=== PATIENT | male | born 1980 | race African-American/Black ===

== ENCOUNTER 2018-10-25 17:33 | Emergency (ER) | payer SELFPAY ==
[2018-10-25] VITALS (7 sets, daily range): BP systolic 141–150; BP diastolic 86–106; PULSE 83–104; RESP 14–22; TEMP 37.2; O2SAT 92–95; BMI 23.0
[2018-10-25] MEDS: Ipratropium/Albuterol Sulfate 3 ML AMPUL.NEB INHALATION (18:24)
[2018-10-25] MEDS: predniSONE 20 MG Tablet 60 MG PO (19:08)
--- NOTE | 2018-10-25 19:16 | ED.DCSUM_ITS ---
- ER Visit Summary Date of Service: 10/25/18 Chief Complaint: Asthma History of Present Illness: The patient is a 38 M who presents with shortness of breath that has gotten worse today. Patient states is gradually gotten worse over the past 3 days. Patient states this feels similar to prior asthma exacerb ations. Patient admits to a cough with occasional clear sputum. Patient admits to some subjective chills. Patient admits to some dull chest pain. Physical Examination: Vital signs are stable. Patient is afebrile. Patient is in no acute distress. Oral mucosa is pink and moist. Neck is supple. Trachea is midline. There is no JVD noted. Heart was regular rate and rhythm. Lungs showed diffuse wheezing. There is good respiratory effort noted. There are no retractions noted. Abdomen is soft and nontender. Cranial nerves II through XII are intact. There are no focal motor or sensory deficits noted. Emergency Department Course and Treatment: Patient was given a DuoNeb aerosol here. Patient was given a dose of prednisone. Patient still had some wheezing on reevaluation. Patient was given a repeat albuterol aerosol. Patient was given prescription for albuterol nebulizer solution and prednisone. Patient was instructed to follow-up with his primary care physician in 5-7 days. Patient understood and was agreeable with the plan. All questions were answered. Disposition: Discharge home Impression: Asthma exacerbation This note was generated with [employer] dictation software. It may contain incorrect words, spelling, and punctuation that were not noted in review of the chart prior to signing ED Disposition - Plan for ED Patient: Disposition: Home or Assisted Living Diagnosis: Asthma exacerbation Instructions: ED Reactive Airway Disease Prescriptions: Albuterol Aerosols [Ventolin Aerosols] 2.5 mg INHALATION Q4H PRN #25 vial predniSONE tablet 60 mg PO DAILY #15 tab Referrals: Bharat Hinojosa,Joleen Leroy [NON-STAFF] - 5-7 Days
[2018-10-25] MEDS: Albuterol 2.5 MG/3 ML VIAL.NEB. INHALATION (19:50)
--- NOTE | 2018-10-25 20:07 | ED.RN ---
THIS NURSE REVIEWED D/C INSTRUCTIONS WITH PT. PT VERBALIZED UNDERSTANDING OF INSTRUCTIONS. IV D/C. IV CATHETER INTACT. PT TOLERATED WELL. PT DENIES FURTHER NEEDS OR QUESTIONS AT THIS TIME. PT AMBULATES FROM ROOM ON OWN WITHOUT ASSISTANCE FROM STAFF
== END 2018-10-25 20:07 | disposition home or self-care (01) ==
PROVIDERS: Emergency Provider Emergency Medicine
DX: J45.901 Unspecified asthma with (acute) exacerbation (principal); Z72.0 Tobacco use; Z79.51 Long term (current) use of inhaled steroids
CPT/HCPCS: 94640; 99284

== ENCOUNTER 2018-11-05 20:06 | Observation (INO) | payer SELFPAY ==
[2018-10-25 17:33] VITALS: BMI 23.0
[2018-11-05] VITALS (8 sets, daily range): BP systolic 149–188; BP diastolic 93–99; PULSE 98–124; RESP 20–28; TEMP 35.8–36.6; O2SAT 91–96; BMI 24.3
[2018-11-05] MEDS: predniSONE 20 MG Tablet 80 MG PO (20:51)
[2018-11-05] MEDS: Albuterol 2.5 MG/3 ML VIAL.NEB. INHALATION ×5 (20:56→22:27)
--- NOTE | 2018-11-05 21:54 | EKG12_ITS ---
Test Reason : SOB Blood Pressure : / mmHG Vent. Rate : 100 BPM Atrial Rate : 100 BPM P-R Int : 130 ms QRS Dur : 076 ms QT Int : 344 ms P-R-T Axes : 073 070 042 degrees QTc Int : 443 ms Normal sinus rhythm Normal ECG Confirmed by KIERRA POOLE, FABIOLA ([id number]), deputy editor in chief DEVENDRA BIGGS ([id number]) on 11/07/2018 12:52:30 PM Referred By: DANIELA Confirmed By:FABIOLA LOZADA MD
[2018-11-05] MEDS: Ipratropium/Albuterol Sulfate 3 ML AMPUL.NEB INHALATION (22:03)
--- NOTE | 2018-11-05 22:15 | RAD_ITS ---
STUDY: X-RAY CHEST REASON FOR EXAM: Male, 38 years old. Wheezing, dyspnea. History of asthma. TECHNIQUE: PA and lateral chest. COMPARISON: August 25, 2016. FINDINGS: The lungs are clear and expanded. There is no demonstrated pleural abnormality. Normal size heart. Normal mediastinum and apolinar. Normal visualized pulmonary arteries. Normal visualized aortic arch and descending thoracic aorta. Normal visualized thoracic spine. Normal visualized ribs, clavicles, and shoulders. There is no demonstrated abnormality of the visualized soft tissue structures of the upper abdomen. RAD/Chest PA and Lateral IMPRESSION: Normal x-ray examination of the chest. Electronically Signed: Rajesh Flores MD at 0:21 EDT , Service support ,
--- NOTE | 2018-11-05 22:25 | ED.RN ---
After first set of breathing treatments pt uses call light to let this RN know he is feeling worse. Pt is labored breathing again, diaphoretic, tachypneic stating i cant breath, i need air Pt pulse ox noted to be 86% at this time. Placed on oxygen 2L NC. Dr Araya notified and states he will enter more orders. After reassessing patient he states he is feeling a little better after the oxygen, now 94% on 2L.
[2018-11-05 22:36] LABS: Absolute Lymphocyte Count 2.63 X10^3/ul (0.83-4.51); Absolute Neutrophil Count 9.6 X10^3/uL (2.0-7.7); Basophil# 0.03 X10^3/uL; Basophil% 0.2 % (0-1); Eosinophil# 0.36 X10^3/uL; Eosinophils% 2.6 % (0-5); Hematocrit 43.9 % (40-54); Hemoglobin 14.9 g/dl (13.0-16.5); Lymphocyte # 2.63 X10^3/ul (4.0); Lymphocyte % 19.3 % (19-41); Mean Corp Hgb Conc 33.9 g/gl (32-36); Mean Corpuscular Hgb 28.8 pg (27.0-32.0); Mean Corpuscular Volume 84.7 fL (80-94); Mean Platelet Vol. 8.7 fl (6.2-12.0); Monocyte# 0.98 X10^3/uL; Monocyte% 7.2 % (0-10); Neutrophil # 9.62 X10^3/uL (2.7-7.7); Neutrophil % 70.5 % (47-70); Platelet Count 266 K/mm3 (150-450); RBC Distribution Width CV 14.4 % (11.6-14.6); RBC Distribution Width SD 44.3 fl (35.1-43.9); Red Blood Count 5.18 M/mm3 (4.6-6.2); White Blood Count 13.7 K/mm3 (4.4-11.0)
[2018-11-05 22:41] LABS: POSITIVE COUNT NO; POSITIVE DIFFERENTIAL NO; POSITIVE MORPHOLOGY NO
[2018-11-05 22:45] LABS: Anion Gap 6 (5-15); BUN 12 mg/dL (7-18); BUN/Creat Ratio 12.3 RATIO (10-20); Calcium,Total 8.4 mg/dL (8.5-10.1); Chloride 110 mmol/L (98-107); Creatinine, Serum 0.98 mg/dL (0.70-1.30); EST Glomerular Filtration Rate 91 mL/min (>60); Est Glom Filt Rate - Afr Amer 110 mL/min (>60); Estimated Creatinine Clearance 104.49 ml/min; Glucose 109 mg/dL (74-106); Potassium 3.8 mmol/L (3.5-5.1); Sodium Level 140 mmol/L (136-145)
--- NOTE | 2018-11-05 23:23 | ED.VISSUMM ---
- ER Visit Summary Date of Service: 11/05/18 Chief Complaint: Asthma flare History of Present Illness: The patient is a 38 M history of asthma shortness of breath and wheezing. Denies any chest pain. States has had a productive cough of clear phlegm. No hemoptysis. No history of DVT or PE no significant risk factors. No leg pain or swelling. He has had asthma flares like this before. Physical Examination: Middle-aged male. Vital signs stable. He is tachycardic at 124. Pulse ox 91% on room air. Borderline hypoxia. H EENT exam unremarkable. Neck nontender no JVD. No lymphadenopathy. Heart tachycardic rate of 120 no murmur. Lungs expiratory wheezing throughout. Prolonged extra Tory phase. No rales no rhonchi. Equal symmetrical. Abdomen soft and nontender. Extremities moves all 4. Calves nontender no edema. Neurologically is awake alert with no focal deficits. Test Results: Chest x-ray two-view shows no acute abnormality. Normal cardiac silhouette. No infiltrate. EKG sinus rhythm rate of 100 acute signs of KS or ischemia. CBC shows white count 13. H&H of 14 and 43. Chemistries unremarkable. Normal creatinine and gap. Emergency Department Course and Treatment: Patient initially treated with oral prednisone albuterol and DuoNeb aerosols. He was not improving as quickly as I had hoped written screening labs and a chest x-ray which are basically unremarkable. He received additional aerosols. And is now much improved at 2320. Treatment Plan: I considered the patient being discharged home. However his pulse was only 89 in bed without oxygen. We walked him and his sats initially got better ambulating 92-94 on room air however his heart rate was between 120 and 130. His breathing became labored. I discussed with him and he is comfortable being admitted. We will speak to the hospitalist about admission. Disposition: admit Impression: Acute exacerbation of asthma This note was generated with [employer] dictation software. It may contain incorrect words, spelling, and punctuation that were not noted in review of the chart prior to signing ED Disposition - Plan for ED Patient: Disposition: Home or Assisted Living Instructions: ED Bronchitis Asthmatic Prescriptions: Albuterol Aerosols [Ventolin Aerosols] 2.5 mg INHALATION Q4H PRN #25 vial Prednisone [Deltasone] 40 mg PO DAILY 10 Days tab Referrals: Joleen Leroy [NON-STAFF] - As soon as possible Additional Instructions: Prednisone daily for 10 days. Inhaler as needed. Nebulizer as needed.
--- NOTE | 2018-11-05 23:28 | ED.DEP ---
ED Disposition - Plan for ED Patient: Disposition: Home or Assisted Living Instructions: ED Bronchitis Asthmatic Prescriptions: Albuterol Aerosols [Ventolin Aerosols] 2.5 mg INHALATION Q4H PRN #25 vial Prednisone [Deltasone] 40 mg PO DAILY 10 Days tab Referrals: Joleen Leroy [NON-STAFF] - As soon as possible Additional Instructions: Prednisone daily for 10 days. Inhaler as needed. Nebulizer as needed.
--- NOTE | 2018-11-05 23:49 | HP.PCM_ITS ---
Problem List (1) Acute asthma exacerbation Status: Suspected History of Present Illness Date of Admission: 11/05/18 Chief Complaint: Shortness of breath The patient is a 38 year old M with a significant history of asthma and tobacco abuse who was discharged at our emergency department on 10/25/2018 with albuterol aerosol and prednisone tablets returning with a few day history of recurrent shortness of breath. Patient reported that following his previous emergency department visit as stated above he noticed some improvement only to have recurrence of his shortness of breath. He reported that recently he woke up with shortness of breath. Also his significant other noticed that he was in distress with adventitious audible breath sounds. Patient reports wheezing. Associated with her Symptoms is productive cough with clear sputum. He reports using [id number] cough syrup. Emergency department doctor reported that on room air patient had oxygenation of 89%. With ambulation his oxygenation rather improved but his heart rate increased to 130. At the emergency department he received a couple rounds of breathing treatment and prednisone 80 mg p.o. The plan was to discharge him home but because he continued to have shortness of breath. The emergency department doctor recommended that he stays at the hospital and be watched. Past Medical History Past Medical History (Chronic Problems): Chronic Problems Former smoker (Chronic) Medical History: Medical History (Last Updated 11/06/18 @ 03:14 by Manuel Zurita MD) Asthma J45.909 Allergies iodine Allergy (Verified 10/25/18 17:35) Swelling Home Medications: Ambulatory Orders Medication Instructions Recorded Acetaminophen [Tylenol Tablet] 650 mg PO Q6H PRN PRN #0 tablet 08/26/16 Budesonide/Formoterol Fumarate 10.2 gm IH BID #1 hfa.aer.ad 08/26/16 [Symbicort 160-4.5 Mcg Inhaler] Albuterol Aerosols [Ventolin 2.5 mg INHALATION Q4H PRN #25 vial 10/25/18 Aerosols] Surgical History: no surgical history Psychiatric History: No pertinent psych hx Smoking Status: Former smoker - Quit few days ago. Alcohol: Occasional - *Family History Maternal History Items: Asthma, Hypertension Paternal History Items: Diabetes Review of Systems Constitutional: Denies: Chills, Fever, Weight Change HEENT: Denies: Head Aches, Sinus Congestion, Sinus Drainage Cardiovascular: Denies: Chest Pain, Palpitations Respiratory: Reports: Cough, Shortness of breath at rest, Sputum production Gastrointestinal: Denies: Abdominal Pain, Nausea, Vomiting Genitourinary: Denies: Dysuria Musculoskeletal: Denies: Joint Pain, Joint Tenderness Skin: Denies: Rash, Wounds Neurological: Denies: Numbness, Tingling, Focal weakness Psychiatric: Denies: Anxiety, Depression, Homicidal Ideations, Suicidal Ideations Hematologic/ Lymphatic: Denies: Easy Bruising, Easy Bleeding VTE Information - Inpt Only VTE Present on Admission: No VTE Mechan Device Prophylaxis: None VTE Pharm Prophylaxis ordered?: No Reason prophylaxis not ordered:: Treatment Not Indicated - Low risk - Physical Exam General: Alert, Oriented x3, Cooperative HEENT: Atraumatic, PERRLA, EOMI, Normocephalic Neck: Supple, No JVD, Negative Carotid Bruits Lungs: Rhonchi, Tachypneic, Wheezes, - - Prolonged expiratory phase Cardiovascular: Normal S1, Normal S2, No murmurs, Tachycardic Abdomen: Bowel Sounds Present, Soft, Non Tender Extremities: No edema, Capillary Refill Less than 3 Seconds Skin: No rashes, No breakdown Musculoskeletal: No Tenderness to Palpation of Joints or Extremities Neurological: Cranial nerves II-XII grossly intact Psych/Mental Status: Normal Affect, Appropriate Vital Signs Temp Pulse Resp BP Pulse Ox 98 F 102 H 22 H 149/99 H 95 11/05/18 22:06 11/05/18 22:27 11/05/18 22:27 11/05/18 22:06 11/05/18 22:06 Oxygen Flow Rate (L/min) 2 Oxygen Delivery Method Nasal Cannula Weight: 77.111 kg Body Mass Index (BMI) 24.3 Laboratory Tests Past 24 Hrs 11/05/18 11/05/18 22:25 22:25 WBC 13.7 H RBC 5.18 Hgb 14.9 Hct 43.9 MCV 84.7 MCH 28.8 MCHC 33.9 RDW 14.4 RDW Differential 44.3 H Plt Count 266 MPV 8.7 Immature Gran % (Auto) 0.200 Neut % (Auto) 70.5 H Lymph % (Auto) 19.3 [place] % (Auto) 7.2 Eos % (Auto) 2.6 Baso % (Auto) 0.2 Absolute Neuts (auto) 9.6 H Absolute Lymphs (auto) 2.63 Total Counted Not Reportable Sodium 140 Potassium 3.8 Chloride 110 H Carbon Dioxide 24.0 Anion Gap 6 BUN 12 Creatinine 0.98 Estim Creat Clear Calc 104.49 Est GFR (MDRD) Af Amer 110 Est GFR (MDRD) Non-Af 91 BUN/Creatinine Ratio 12.3 Glucose 109 H Calcium 8.4 L Assessment/Plan All Active Problems (Last Updated 11/06/18 @ 03:14 by Manuel Zurita MD) Acute respiratory failure with hypoxemia (Acute) he patient is a 38 year old M with a significant history of asthma and tobacco abuse who was discharged at our emergency department on 10/25/2018 with albuterol aerosol and prednisone tablets returning with a few day history of recurrent shortness of breath consistent with acute exacerbation of asthma. Acute exacerbation of asthma Received multiple breathing treatment and prednisone 80 mg was ordered at the emergency department. Discussed with emergency department doctor to give magnesium sulfate which patient received. Prednisone 40 mg x1 in a.m. Consider further prednisone therapy. Scheduled DuoNeb. Albuterol PRN ordered. Oxygen as needed. Mucinex ordered Rapid influenza screen ordered. Tobacco abuse. Reportedly patient quit few days ago. Counseled. DVT prophylaxis Low risk Encouraged to ambulate. Code Visit OBSV E&M: 77978 Initial observation care L3
[2018-11-06] VITALS (15 sets, daily range): BP systolic 112–132; BP diastolic 72–90; PULSE 76–104; RESP 16–20; TEMP 35.7–36.9; O2SAT 91–98; BMI 23.6
--- NOTE | 2018-11-06 00:45 | ED.RN ---
CALLED PHARMACY FOR MAGNESIUM.
[2018-11-06] MEDS: Ipratropium/Albuterol Sulfate 3 ML AMPUL.NEB INHALATION ×6 (02:03→23:23)
[2018-11-06] MEDS: 0.9% NaCl Peripheral Flush Adult/Peds IV ×3 (06:09→21:21)
[2018-11-06] MEDS: predniSONE 20 MG Tablet 40 MG PO (06:09)
[2018-11-06] MEDS: Budesonide Respules 0.5 MG/2 ML AMPUL.NEB. INHALATION (07:22)
[2018-11-06] MEDS: guaiFENesin 1,200 MG Tablet 1200 MG PO ×2 (11:13→21:21)
--- NOTE | 2018-11-06 11:18 | PN_ITS ---
Subjective: Patient notes notable improvement since day prior but still having dyspnea with exertion and some expiratory wheezing. He states he does have ongoing coughing although not markedly productive. Patient notes that he has had a severe exacerbation approximately once annually over the past 2 years and was recently evaluated in the emergency room the Sunday before secondary to ongoing symptoms but continued to progressively worsening. Patient denies fevers, chills, nausea, emesis, abdominal pain, chest pain. Objective: Physical Examination: General: awake, alert, oriented x 3 and cooperative, seated upright bedside, eating, no acute distress, notes market improvement since day prior. Skin: normal color, turgor, no icterus, cyanosis. HEENT: AT/NC, EOMI, PERRLA, MMM. Lungs: Severely diffusely diminished, greater bilateral bases, soft distant end expiratory wheeze, notable dyspnea with any exertional effort still, no rales or rhonchi. Heart: Regular rate and rhythm; no gallop, rub audible. Abdomen: soft, NTTP, ND, normal BS. Extremities: no cyanosis, clubbing, or edema. Neurological: patient awake, alert, oriented x 3; cognitive function intact; pupils equally reactive to light and accomodation; cranial nerves II-XII grossly normal, moving all 4 extremities, no focal deficits, strength moderately globally decreased secondary to acute presentation. Psychiatric: affect appears normal, no acute evidence of depressive or anxiety feelings. Vitals/I&O's: Vital Signs Temp Pulse Resp BP Pulse Ox 98.1 F 104 H 18 123/77 H 96 11/06/18 08:56 11/06/18 08:56 11/06/18 08:56 11/06/18 08:56 11/06/18 08:56 Oxygen Flow Rate (L/min) 2 Oxygen Delivery Method Room Air Weight: 164 lb 7.437 oz Body Mass Index (BMI) 23.6 Microbiology Past 72 Hours 11/06/18 02:10 Interface Orders Influenza Types A,B Direct FA (RUI) - Final Laboratory Results 11/05/18 22:25: WBC 13.7 H, RBC 5.18, Hgb 14.9, Hct 43.9, MCV 84.7, MCH 28.8, MCHC 33.9, RDW 14.4, RDW Differential 44.3 H, Plt Count 266, MPV 8.7, Immature Gran % (Auto) 0.200, Neut % (Auto) 70.5 H, Lymph % (Auto) 19.3, [place] % (Auto) 7.2, Eos % (Auto) 2.6, Baso % (Auto) 0.2, Absolute Neuts (auto) 9.6 H, Absolute Lymphs (auto) 2.63, Total Counted Not Reportable 11/05/18 22:25: Sodium 140, Potassium 3.8, Chloride 110 H, Carbon Dioxide 24.0, Anion Gap 6, BUN 12, Creatinine 0.98, Estim Creat Clear Calc 104.49, Est GFR (MDRD) Af Amer 110, Est GFR (MDRD) Non-Af 91, BUN/Creatinine Ratio 12.3, Glucose 109 H, Calcium 8.4 L Current Medications Acetaminophen (Tylenol) 650 mg PO Q6H PRN PRN PRN Reason: Mild Pain (scale 0-3)/T>100.7 Al Hydroxide/Mg Hydroxide (Mylanta Ii) 30 ml PO Q6H PRN PRN PRN Reason: Gastric burning Albuterol Sulfate (Ventolin Aerosols) 2.5 mg INHALATION Q2H PRN PRN PRN Reason: SHORTNESS OF BREATH Albuterol/Ipratropium (Duoneb) 3 ml INHALATION Q4H.RT [facility] Last Admin: 11/06/18 11:05 Dose: 3 ml Budesonide (Pulmicort Aerosol) 0.5 mg INHALATION Q12H.RT [facility] Last Admin: 11/06/18 07:22 Dose: 0.5 mg Guaifenesin (Mucinex) 1,200 mg PO BID [facility] Last Admin: 11/06/18 11:13 Dose: 1,200 mg Magnesium Hydroxide (Milk Of Magnesia) 30 ml PO DAILY PRN PRN PRN Reason: Constipation Ondansetron HCl (Zofran) 4 mg IV Q8H PRN PRN PRN Reason: NAUSEA Sodium Chloride () 5 - 15 ml IV UD PRN PRN Reason: SALINE FLUSH Last Admin: 11/06/18 06:09 Dose: 10 ml Medical Necessity - Tobacco Use Smoking Status: Former smoker - Quit few days ago. Assessment/Plan All Active Problems (Last Updated 11/06/18 @ 03:14 by Mnauel Zurita MD) Acute respiratory failure with hypoxemia (Acute) The patient is a 38 y/o M w/ PMHx: Asthma, Former Tobacco use who presents to the [facility] ED on 11/05/18 with history of several day history of progressive [place], wheezing, cough productive of clear sputum only without any fevers or chills times 1-2 weeks with ED evaluation x2 with intermittent improvement however worsened again prompting return. (1) Acute on chronic Asthma exacerbation with Acute Hypoxic Respiratory Failure: Initial ED presentation with hypoxia, increased work of breathing with accessory muscle usage and tachycardia. CXR w/ chronic changes. CBC on admission w/ no market WBC elevation or left shift. Admitted to CO, maintain on oxygen with wean as tolerated to room air, continue ATC duonebs, PRN albuterol, IV methylprednisolone will be initiated and continued given ongoing expiratory wheezing and diffusely diminished status, HOB, IS parameters, negative rapid influenza however given presentation will obtain respiratory viral panel. If p atient continues to clinically improve would expect possible discharge to home in a.m. on a prolonged taper regimen given recent steroid burst regimens with unsuccessful resolution. Upon discharge will refer to pulmonary medicine. (2) Former tobacco use: Encouraged continued tobacco cessation. (3) DVT prophylaxis: Low risk, as improving encourage ambulation. Code Visit Inpatient E&M: 66965 Subs Hosp L2
--- NOTE | 2018-11-06 12:20 | CASEMGMT ---
Social Work Note Pt is listed as self-pay. Per PFS notes, pt hasn't worked in five months. Pt has been staying with his family and significant other who have been supporting home. 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 Pt completed Medicaid application and HCAP application. PFS faxed completed Medicaid application to [facility]. SW met with pt in regards to self-pay status. SW introduced self and role at [facility]. Pt is alert and orientated x4. Pt confirms that he lives with family and is not currently employed. Pt states that he has good family and friends and he feels supported. Substance Abuse Hx: Pt states that he drinks a little bit and that he used to smoke weed. Pt denied any additional substance abuse or use. Mental Health Hx: Pt states he has anxiety, but nothing more than anyone else. Pt denied currently taking medications. Pt states that he used to be in counseling but it was through the courts. Pt denied wanting counseling resources at this time. LAILA provided pt with additional financial resources including Joleen Leroy, [employer], [place] [address], [facility] financial assistance, and prescription assistance resources. Pt denied any questions or concerns. Kelsey Brown GAMBLING DEALER, HOME HEALTH NURSE LICENSED PRACTICAL
[2018-11-06] MEDS: Albuterol 2.5 MG/3 ML VIAL.NEB. INHALATION (21:09)
[2018-11-07 02:41] VITALS: BP 128/76; PULSE 90; RESP 18; TEMP 36.7; O2SAT 97
[2018-11-07 02:55] VITALS: PULSE 77; RESP 20
[2018-11-07] MEDS: Ipratropium/Albuterol Sulfate 3 ML AMPUL.NEB INHALATION (02:55)
[2018-11-07] MEDS: 0.9% NaCl Peripheral Flush Adult/Peds IV (06:07)
--- NOTE | 2018-11-07 07:47 | DCINST_ITS ---
- Discharge Diagnoses Current Active Problems: (1) Acute on chronic Asthma exacerbation with Acute Hypoxic Respiratory Failure (2) Former tobacco use You will use the following diet at home:: No restrictions Your food should be the consistency of: Regular Your liquids should be the consistency of: Regular/Thin Discharge Activity: - - Avoid aggressive activity until completed steroid taper, re-evaluation per your physician. Please avoid any known asthma triggers. May resume sexual activity in: 10-14 days Call your doctor if you observe: Fever of 101 or Higher, Inability to urinate, Inability to have a bowel movement, Shortness of breath, Dizziness, Fainting spells, Chest pain, Uncontrolled pain Instructions: ED Bronchitis Asthmatic, Using a Nebulizer (Adult) Allergies/Adverse Reactions: Allergies iodine Allergy (Verified 10/25/18 17:35) Swelling Medications to take at Discharge Acetaminophen [Tylenol Tablet] 650 mg PO Q6H PRN PRN #0 tablet 08/26/16 Budesonide/Formoterol Fumarate [Symbicort 160-4.5 Mcg Inhaler] 10.2 gm IH BID #1 hfa.aer.ad 08/26/16 Albuterol Aerosols [Ventolin Aerosols] 2.5 mg INHALATION Q4H PRN #1 box 11/07/18 Albuterol IH (ProAir) [Proair Hfa] 1 - 2 puff INHALATION Q4H PRN PRN #1 inhaler 11/07/18 Guaifenesin [Mucinex] 1,200 mg PO BID #20 tablet 11/07/18 Prednisone 10 mg PO UD #30 tablet 11/07/18 The following prescriptions were given: Albuterol Aerosols [Ventolin Aerosols] 2.5 mg INHALATION Q4H PRN #1 box Albuterol IH (ProAir) [Proair Hfa] 1 - 2 puff INHALATION Q4H PRN PRN #1 inhaler PRN Reason: dyspnea, wheezing Prednisone 10 mg PO UD #30 tablet Guaifenesin [Mucinex] 1,200 mg PO BID #20 tablet Primary Care Physician: Joleen Leroy [NON-STAFF] - As soon as possible Please follow up with your Primary Care Physician in: Follow-up within 3-5 days to review admission. Test Results: Test results from this visit will be discussed in further detail at your follow- up appointment, if applicable. Please Follow Up With: Brown,Jozef, DO When: Please follow-up within 1-2 weeks, may see Wilma RIVERO. Proposed Discharge Date: 11/07/18
--- NOTE | 2018-11-07 07:49 | DS.PCM_ITS ---
Discharge Date and Diagnosis Date of Admission: 11/05/18 Date of Discharge: 11/07/18 - Primary Discharge Diagnosis (1) Acute on chronic Asthma exacerbation with Acute Hypoxic Respiratory Failure (2) Former tobacco use - Secondary Discharge Diagnosis Chronic Problems Former smoker (Chronic) Hospital Course and Treatment Operations: None Procedures: None Summary of Care Provided: The patient is a 38 y/o M w/ PMHx: Asthma, Former Tobacco use who presented to the [facility] ED on 11/05/18 with history of several day history of progressive fatigue, wheezing, cough productive of clear sputum only without any fevers or chills times 1-2 weeks with ED evaluation x2 with intermittent improvement however worsened again prompting return. Initial ED presentation with hypoxia, increased work of breathing with accessory muscle usage and tachycardia. CXR w/ chronic changes. CBC on admission w/ no market WBC elevation or left shift. Admitted to DE, maintain on oxygen with wean as tolerated to room air, continue ATC duonebs, PRN albuterol, IV methylprednisolone will be initiated and continued given ongoing expiratory wheezing and diffusely diminished status, HOB, IS parameters, negative rapid influenza with followup negative respiratory viral panel. Patient clinically improved, transitioned upon discharge to prolonged steroid taper given recurrent with recent burst with requested PCP and Pulmonary medicine follow-up upon discharge w/ encouraged continued tobacco cessation. DAY OF DISCHARGE PROGRESS NOTE: Subjective: Patient without acute event overnight per self and nursing report. Patient had complete resolution of prior wheezing. He is up and moving without any issues. Patient denies fever, chills, nausea, emesis, abdominal pain, chest pain or worsened dyspnea. Patient agreeable to discharge to home. Patient will be discharged with follow-up with primary care physician within 3-5 days message left at the [facility] to assure good follow-up as well as referral to pulmonary medicine with planned follow-up within 1-2 weeks with pulmonary HUMANITIES DIVISION CHAIR. Objective: T 97.8, heart rate 130/74, respiratory rate 18, 96% on room air. Physical Examination: General: awake, alert, oriented x 3 and cooperative, seated upright in the bed, NAD. Skin: normal color, turgor, no icterus, cyanosis. HEENT: AT/NC, EOMI, PERRLA, MMM. Lungs: Improved, mildly diminished at bases, no current wheezing, better and improved effort, no rales or rhonchi. Heart: Regular rate and rhythm; no gallop, rub audible. Abdomen: soft, NTTP, ND, normal BS. Extremities: no cyanosis, clubbing, or edema. Neurological: patient awake, alert, oriented x 3; cognitive function appears intact upon questioning,; pupils equally reactive to light and accomodation; cranial nerves II-XII grossly normal, moving all 4 extremities, strength improved, appropriate. Psychiatric: affect appears normal, no acute evidence of depressive or anxiety feelings. Assessment and Plan: Please see hospital summary above. - Physical Exam Vital Signs Temp Pulse Resp BP Pulse Ox 98.0 F 77 20 H 128/76 H 97 11/07/18 02:41 11/07/18 02:55 11/07/18 02:55 11/07/18 02:41 11/07/18 02:41 Oxygen Flow Rate (L/min) 2 Oxygen Delivery Method Room Air Weight: 164 lb 7.437 oz Body Mass Index (BMI) 23.6 Intake and Output for Last 24 Hours 11/05/18 11/06/18 11/07/18 23:59 23:59 23:59 Intake Total 400 / 400 240 / 240 Balance 400 / 400 240 / 240 Microbiology Past 72 Hours 11/06/18 13:25 Respiratory Panel (PCR) - Final Mucosa - Nasopharyngeal 11/06/18 02:10 Influenza Types A,B Direct FA (RUI) - Final Interface Orders Discharge Activity: - - Avoid aggressive activity until completed steroid taper, re-evaluation per your physician. Please avoid any known asthma triggers. May resume sexual activity in: 10-14 days Call your doctor if you observe: Fever of 101 or Higher, Inability to urinate, Inability to have a bowel movement, Shortness of breath, Dizziness, Fainting spells, Chest pain, Uncontrolled pain Home Medications: Medications to take at Discharge Acetaminophen [Tylenol Tablet] 650 mg PO Q6H PRN PRN #0 tablet 08/26/16 Budesonide/Formoterol Fumarate [Symbicort 160-4.5 Mcg Inhaler] 10.2 gm IH BID #1 hfa.aer.[email or web address] 08/26/16 Albuterol Aerosols [Ventolin Aerosols] 2.5 mg INHALATION Q4H PRN #1 box 11/07/18 Albuterol IH (ProAir) [Proair Hfa] 1 - 2 puff INHALATION Q4H PRN PRN #1 inhaler 11/07/18 Guaifenesin [Mucinex] 1,200 mg PO BID #20 tablet 11/07/18 Prednisone 10 mg PO UD #30 tablet 11/07/18 Following Prescrptions Were Given to Patient: Albuterol Aerosols [Ventolin Aerosols] 2.5 mg INHALATION Q4H PRN #1 box Albuterol IH (ProAir) [Proair Hfa] 1 - 2 puff INHALATION Q4H PRN PRN #1 inhaler PRN Reason: dyspnea, wheezing Prednisone 10 mg PO UD #30 tablet Guaifenesin [Mucinex] 1,200 mg PO BID #20 tablet Primary Care Physician: Joleen Leroy [NON-STAFF] - As soon as possible Please follow up with your Primary Care Physician in: Follow-up within 3-5 days to review admission. Please Follow Up With: Jozef Maharaj DO When: Please follow-up within 1-2 weeks, may see Pulm HUMANITIES DIVISION CHAIR. Patient Instructions: Using a Nebulizer (Adult), ED Bronchitis Asthmatic Disposition: Home Minutes spent on discharge:: 35 Patient Condition:: Fair Medical Necessity - Tobacco Use Smoking Status: Former smoker - Quit few days ago. Meaningful Use Info Meaningful Use Diagnoses (Choose all that apply): None applicable Code Visit OBSV E&M: 12341 Observation care discharge
[2018-11-07 07:50] VITALS: O2SAT 96
[2018-11-07 08:45] VITALS: BP 130/74; PULSE 95; RESP 20; TEMP 36.6; O2SAT 92
--- NOTE | 2018-11-07 08:53 | NURSING ---
Addendum entered by Mayra Johns 11/07/18 12:29: [facility] returned call at this time. Notified that patient states he has been there before and was given address and telephone number to schedule own appointment. pt verbalized understanding prior to d/c this AM. Original Note: Addendum entered by Mayra Johns 11/07/18 09:59: call not returned prior to d/c-- pt reports he has been there in the past and can contact them regarding f/u visit. Dr. Nolasco's office (pulmonology) called and appointment scheduled. Notified by project scheduler that pt must see dr. nolasco as he was not consulted in hospital. (see d/c appts on worklist). Dr. Alberto also requested pt to have I.S. and pep to take on d/c. Same completed. Original Note: Attempted to call [facility] at this time to schedule f/u appt. Message left on answering machine- requesting return call to this RN's work cell phone.
[2018-11-07] MEDS: guaiFENesin 1,200 MG Tablet 1200 MG PO (09:42)
[2018-11-07 09:51] VITALS: RESP 20; O2SAT 92
== END 2018-11-07 10:17 | disposition home or self-care (01) ==
LOC: ED 23:32 → MS2 11-06 00:19
PROVIDERS: Admitting Provider Hospitalist; Emergency Provider Emergency Medicine; Visit Provider Family Medicine
DX: J45.901 Unspecified asthma with (acute) exacerbation (principal); J96.01 Acute respiratory failure with hypoxia; Z87.891 Personal history of nicotine dependence; Z79.51 Long term (current) use of inhaled steroids
CPT/HCPCS: 71046; 80048; 85025; 87633; 87804; 93005; 94640; 94667; 94668; 96361; 96374; 96376; 99218; 99282; J7050; A4216; G0378; J3475

== ENCOUNTER 2018-12-07 00:17 | Emergency (ER) | payer SELFPAY ==
[2018-11-06 01:20] VITALS: BMI 23.6
[2018-12-07 00:17] VITALS: BP 138/94; PULSE 110; RESP 24; TEMP 36.6; O2SAT 93; BMI 24.3
[2018-12-07] MEDS: Ipratropium/Albuterol Sulfate 3 ML AMPUL.NEB INHALATION (00:37)
[2018-12-07 00:39] VITALS: PULSE 101; RESP 12
[2018-12-07 00:58] VITALS: O2SAT 92
[2018-12-07] MEDS: predniSONE 20 MG Tablet 60 MG PO (00:58)
--- NOTE | 2018-12-07 01:05 | EKG12_ITS ---
Test Reason : SOB Blood Pressure : / mmHG Vent. Rate : 083 BPM Atrial Rate : 083 BPM P-R Int : 136 ms QRS Dur : 080 ms QT Int : 366 ms P-R-T Axes : 069 069 053 degrees QTc Int : 430 ms Normal sinus rhythm with sinus arrhythmia Normal ECG Confirmed by FARRAH POOLE, MINNA ([id number]), movie editor DEVENDRA BIGGS ([id number]) on 12/09/2018 11:52:44 AM Referred By: CARO Confirmed By:MINNA YAN MD
--- NOTE | 2018-12-07 01:05 | RAD_ITS ---
STUDY: X-RAY CHEST REASON FOR EXAM: Male, 38 years old. Shortness of breath with asthma exacerbation. TECHNIQUE: Single AP portable view of the chest. COMPARISON: November 05, 2018 FINDINGS: There is hyperinflation of the lungs consistent with chronic obstructive lung disease (COPD). There is no demonstrated pleural abnormality. Normal size heart. Normal mediastinum and apolinar. Normal visualized pulmonary arteries. Normal visualized aortic arch and descending thoracic aorta. Normal visualized thoracic spine. Normal visualized ribs, clavicles, and shoulders. There is no demonstrated abnormality of the visualized soft tissue structures of the upper abdomen. RAD/Chest 1 View (Portable) IMPRESSION: COPD without radiographic evidence of acute cardiopulmonary disease. Electronically Signed: Tia Mabry MD at 1:33 EDT , Service support ,
[2018-12-07 01:19] VITALS: PULSE 100; RESP 14
[2018-12-07] MEDS: Albuterol 2.5 MG/3 ML VIAL.NEB. INHALATION ×2 (01:19)
--- NOTE | 2018-12-07 02:05 | ED.VISSUMM ---
- ER Visit Summary Date of Service: 12/07/18 Chief Complaint: Shortness of breath History of Present Illness: The patient is a 38 M who goes to the [facility]. He has a history of asthma. Reports that since 3:00 this morning is been having to use his albuterol nebulizer every 3 hours. States he was last on steroids approximately 1 month ago. At that time he was hospitalized. He is never been intubated for his asthma. Patient reports that his shortness of breath is severe at worst and mild currently. He has a cough is productive of clear sputum without blood. Physical Examination: Vitals: Stable. Afebrile. General: Well-nourished and well-developed. Head: Normocephalic atraumatic. Neck: Supple, no lymphadenopathy. No JVD. Nontender. Cardiovascular: Regular rate and rhythm. No murmurs. Respiratory: No respiratory distress. Mild wheezing bilaterally with greatly decreased air movement. Abdominal: Soft, nontender, nondistended, normal bowel sounds. No guarding, rebound, or peritoneal signs. Back: Nontender. Extremities: Nontender, no edema. Skin: Normal color, no rash. Neurologic: Alert and oriented ?3. Cranial nerves II through XII are intact. Normal strength and sensation. Psych: Normal affect. Test Results: EKG is sinus at [address] changes. There is no old EKG for comparison. Chest x-ray shows no acute disease. No pneumothorax or infiltrate. Emergency Department Course and Treatment: Patient was treated butyryl Atrovent aerosols. He was given another albuterol aerosol as well as prednisone p.o. His lungs are now clear. He is breathing much more easily and would like to go home. Treatment Plan: The patient will be discharged with albuterol and Atrovent for his nebulizer. He is also given a prescription for the budesonide inhaler and prednisone. Instructed to follow-up with Dr. Maharaj as soon as possible. Return to the emergency department for any worsening symptoms. Disposition: To home in improved and stable condition. Impression: 1. Asthma exacerbation. This note was generated with [employer] dictation software. It may contain incorrect words, spelling, and punctuation that were not noted in review of the chart prior to signing ED Disposition - Plan for ED Patient: Disposition: Home or Assisted Living Instructions: ED Bronchitis Asthmatic Prescriptions: Albuterol Aerosols [Ventolin Aerosols] 2.5 mg INHALATION Q4H PRN #25 vial Prednisone [Deltasone] 60 mg PO DAILY #15 tablet Budesonide Inhaler 180 mcg [Pulmicort Inhaler 180 mcg] 1 puff INHALATION BID #1 inhaler Ipratropium [Atrovent] 0.5 mg INHALATION TID #1 box Referrals: Joleen Leroy [NON-STAFF] - 1-2 Days if not improving Jozef Maharaj DO [STAFF PHYSICIAN] - As soon as possible
[2018-12-07 03:23] VITALS: RESP 18; O2SAT 96
== END 2018-12-07 03:23 | disposition home or self-care (01) ==
PROVIDERS: Emergency Provider Emergency Medicine
DX: J45.901 Unspecified asthma with (acute) exacerbation (principal); Z87.891 Personal history of nicotine dependence
CPT/HCPCS: 71045; 93005; 94640; 99283

== ENCOUNTER 2019-07-12 13:06 | Emergency (ER) | payer OTHER, SELFPAY ==
[2019-07-12 13:08] VITALS: BP 158/98; PULSE 119; RESP 20; TEMP 36.8; O2SAT 85; BMI 24.3
--- NOTE | 2019-07-12 13:23 | EKG12_ITS ---
Test Reason : CP ASTHMA Blood Pressure : / mmHG Vent. Rate : 109 BPM Atrial Rate : 109 BPM P-R Int : 128 ms QRS Dur : 084 ms QT Int : 332 ms P-R-T Axes : 076 079 030 degrees QTc Int : 447 ms Sinus tachycardia Otherwise normal ECG Confirmed by KIERRA POOLE, FABIOLA ([id number]), international editorial producer ARIADNE PEREZ ([id number]) on 07/14/2019 2:45:12 PM Referred By: DANIELA Confirmed By:FABIOLA LOZADA MD
--- NOTE | 2019-07-12 13:23 | RAD_ITS ---
STUDY: X-RAY CHEST REASON FOR EXAM: Male, 39 years old. Dyspnea TECHNIQUE: PA and lateral views of the chest. COMPARISON: 12/07/2018 FINDINGS: The lungs are clear and expanded. There is no demonstrated pleural abnormality. Normal size heart. Normal mediastinum and apolinar. Normal visualized pulmonary arteries. Normal visualized aortic arch and descending thoracic aorta. Normal visualized thoracic spine. Normal visualized ribs, clavicles, and shoulders. There is no demonstrated abnormality of the visualized soft tissue structures of the upper abdomen. RAD/Chest PA and Lateral IMPRESSION: Normal x-ray examination of the chest. Electronically Signed: Martinez Verdin DO at 14:39 EST Tel , Service support ,
[2019-07-12] MEDS: Ipratropium/Albuterol Sulfate 3 ML AMPUL.NEB INHALATION (13:30)
[2019-07-12 13:31] VITALS: PULSE 118; RESP 24
[2019-07-12 13:41] VITALS: PULSE 108; RESP 22; TEMP 36.4; O2SAT 95
[2019-07-12] MEDS: MethylPREDNISolone 125 MG/2 ML Vial IV (13:42)
[2019-07-12 13:44] LABS: Absolute Lymphocyte Count 1.53 X10^3/uL (0.83-4.51); Absolute Neutrophil Count 4.5 X10^3/uL (2.0-7.7); Basophil# 0.03 X10^3/uL; Basophil% 0.4 % (0-1); Eosinophil# 0.27 X10^3/uL; Eosinophils% 3.6 % (0-5); Hematocrit 43.2 % (40-54); Hemoglobin 14.2 g/dL (13.0-16.5); Lymphocyte # 1.53 X10^3/ul (4.0); Lymphocyte % 20.3 % (19-41); Mean Corp Hgb Conc 32.9 g/dL (32-36); Mean Corpuscular Hgb 27.7 pg (27.0-32.0); Mean Corpuscular Volume 84.4 fL (80-94); Mean Platelet Vol. 8.3 fl (6.2-12.0); Monocyte# 1.21 X10^3/uL; NRBC Flagged by Analyzer 0 % (0-5); Neutrophil # 4.49 X10^3/uL (2.7-7.7); Neutrophil % 59.4 % (47-70); Platelet Count 239 K/mm3 (150-450); RBC Distribution Width CV 14.5 % (11.6-14.6); RBC Distribution Width SD 44.3 fl (35.1-43.9); Red Blood Count 5.12 M/mm3 (4.6-6.2); White Blood Count 7.6 K/mm3 (4.4-11.0)
[2019-07-12 13:49] VITALS: O2SAT 94
[2019-07-12 13:55] LABS: Anion Gap 7 (5-15); BUN 10 mg/dL (7-18); BUN/Creat Ratio 10.7 RATIO (10-20); Calcium,Total 8.3 mg/dL (8.5-10.1); Chloride 109 mmol/L (98-107); Creatinine, Serum 0.93 mg/dL (0.70-1.30); EST Glomerular Filtration Rate 95 mL/min (>60); Est Glom Filt Rate - Afr Amer 115 mL/min (>60); Estimated Creatinine Clearance 109.02 ml/min; Glucose 102 mg/dL (74-106); Potassium 3.8 mmol/L (3.5-5.1); Sodium Level 142 mmol/L (136-145)
[2019-07-12] MEDS: Albuterol 2.5 MG/3 ML VIAL.NEB. INHALATION ×2 (14:20→14:21)
--- NOTE | 2019-07-12 15:13 | ED.VISSUMM ---
- ER Visit Summary Date of Service: 07/12/19 Chief Complaint: [Shortness of breath] History of Present Illness: The patient is a 39 M [resents to the emergency department with 2-day history of increasing shortness of breath. Patient states that he is got a cough and yesterday had fever up to 101. Asthmatic. She has been using his inhaler and nebulizer and not get much relief. He denies any chest pain. He denies recent travel or surgery. He has no primary care physician currently.] Physical Examination: [HEENT-PERRLA, EOMI. Cranial nerves II through XII grossly intact. TMs clear. Mucous membranes moist. No adenopathy. Cardiovascular-regular rate and rhythm without murmur or ectopy Lungs-diminished breath sounds bilaterally with extra Tory wheezes throughout. Mild tachypnea. No accessory muscle use or retractions. Patient initially hypoxic on room air at 85%. Abdomen-normoactive bowel sounds, soft, nontender, no rebound or rigidity, no peritoneal signs. Extremities-intact ?4, normal range of motion, normal pulses, atraumatic] Test Results: [CBC with differential obtained showed a white count of 7.6, hemoglobin 14, hematocrit 43, plates 239. Chemistries unremarkable. Chest x-ray showed nothing acute. EKG obtained showed a sinus tachycardia with a ventricular rate of 109 bpm] Emergency Department Course and Treatment: [Patient received DuoNeb aerosol followed by albuterol aerosols. Patient was started on Solu-Medrol and 25 mg IV. Patient was treated with doxycycline 100 mg p.o.] Vision ambulated in the department after treatments without oxygen and his O2 sat is 92%. He is feeling much improved. Treatment Plan: [Patient will be dispensed albuterol for his nebulizer as well as given an albuterol MDI. Patient will be started doxycycline and prednisone. Patient advised to follow-up with primary care physician explosion welder for no doc within the next 3 to 5 days. Patient advised to return if increasing shortness of breath or condition should worsen anyway.] Disposition: [Discharged home in stable condition] Impression: [Asthmatic bronchitis] This note was generated with [employer] software. It may contain incorrect words, spelling, and punctuation that were not noted in review of the chart prior to signing ED Disposition - Plan for ED Patient: Referrals: Care Physician,No Primary [Primary Care Provider] -
[2019-07-12 15:14] VITALS: BP 127/80; PULSE 109; PULSE 93; RESP 20; TEMP 36.8; O2SAT 91; O2SAT 92
--- NOTE | 2019-07-12 15:16 | ED.DEP ---
ED Disposition - Plan for ED Patient: Instructions: BRONCHITIS with Wheezing (Adult) Prescriptions: Prednisone [Deltasone] 20 mg PO BID #10 tab Prescription Printed Doxycycline 100 mg PO BID #20 cap Prescription Printed Albuterol Aerosols [Ventolin Aerosols] 2.5 mg INHALATION Q4H PRN #25 vial Prescription Printed Referrals: Care Physician,No Primary [Primary Care Provider] - Chetna Moore MD [STAFF PHYSICIAN] - 3-5 Days
[2019-07-12] MEDS: Doxycycline 100 MG CAPSULE PO (15:24)
== END 2019-07-12 15:28 | disposition home or self-care (01) ==
LOC: ED 14:10
PROVIDERS: Emergency Provider Emergency Medicine
DX: J45.909 Unspecified asthma, uncomplicated (principal); Z72.0 Tobacco use; Z79.51 Long term (current) use of inhaled steroids
CPT/HCPCS: 71046; 80048; 85025; 93005; 94640; 96374; 99285; A4216

== ENCOUNTER 2019-08-09 17:23 | Emergency (ER) | payer OTHER, SELFPAY ==
[2019-08-09 17:24] VITALS: BP 156/111; PULSE 110; RESP 36; TEMP 37.2; O2SAT 89; BMI 22.9
--- NOTE | 2019-08-09 17:43 | RAD_ITS ---
STUDY: X-RAY CHEST REASON FOR EXAM: Male, 39 years old. ASTHMA ATTACK. TECHNIQUE: Frontal and lateral views of the chest were performed COMPARISON: 12 July 2019 FINDINGS: The lungs are clear and mildly hyperinflated. There is no demonstrated pleural abnormality. Normal size heart. Normal mediastinum and apolinar. Normal visualized pulmonary arteries. Normal visualized aortic arch and descending thoracic aorta. Normal visualized thoracic spine. Normal visualized ribs, clavicles, and shoulders. There is no demonstrated abnormality of the visualized soft tissue structures of the upper abdomen. RAD/Chest PA and Lateral IMPRESSION: 1. Hyperinflation. 2. No acute findings or change since prior. Electronically Signed: Axel Scott, at 19:28 EST Tel , Service support ,
[2019-08-09 17:56] VITALS: PULSE 110; RESP 20
[2019-08-09] MEDS: Ipratropium/Albuterol Sulfate 3 ML AMPUL.NEB INHALATION (17:56)
[2019-08-09 18:00] LABS: Absolute Lymphocyte Count 2.63 X10^3/uL (0.83-4.51); Absolute Neutrophil Count 5.6 X10^3/uL (2.0-7.7); Basophil# 0.03 X10^3/uL; Basophil% 0.3 % (0-1); Eosinophil# 0.27 X10^3/uL; Eosinophils% 2.8 % (0-5); Hematocrit 43.9 % (40-54); Hemoglobin 14.6 g/dL (13.0-16.5); Lymphocyte # 2.63 X10^3/ul (4.0); Lymphocyte % 27.6 % (19-41); Mean Corp Hgb Conc 33.3 g/dL (32-36); Mean Corpuscular Hgb 28.1 pg (27.0-32.0); Mean Corpuscular Volume 84.4 fL (80-94); Monocyte# 0.99 X10^3/uL; Monocyte% 10.4 % (0-10); NRBC Flagged by Analyzer 0 % (0-5); Neutrophil # 5.59 X10^3/uL (2.7-7.7); Neutrophil % 58.7 % (47-70); Platelet Count 248 K/mm3 (150-450); RBC Distribution Width CV 14.6 % (11.6-14.6); RBC Distribution Width SD 45.1 fl (35.1-43.9); White Blood Count 9.5 K/mm3 (4.4-11.0)
[2019-08-09 18:01] VITALS: PULSE 109; RESP 20; TEMP 37; O2SAT 95
[2019-08-09] MEDS: MethylPREDNISolone 125 MG/2 ML Vial 60 MG IV (18:05)
[2019-08-09 18:07] VITALS: BP 125/112; PULSE 108; RESP 18; O2SAT 98
[2019-08-09 18:34] LABS: Anion Gap 7 (5-15); BUN 6 mg/dL (7-18); BUN/Creat Ratio 7.2 RATIO (10-20); Calcium,Total 8.7 mg/dL (8.5-10.1); Chloride 108 mmol/L (98-107); Creatinine, Serum 0.84 mg/dL (0.70-1.30); EST Glomerular Filtration Rate 108 mL/min (>60); Est Glom Filt Rate - Afr Amer 131 mL/min (>60); Estimated Creatinine Clearance 119.87 ml/min; Glucose 78 mg/dL (74-106); Potassium 3.6 mmol/L (3.5-5.1); Sodium Level 142 mmol/L (136-145)
[2019-08-09 19:17] VITALS: BP 133/89; PULSE 108; RESP 18; TEMP 36.6; O2SAT 96
[2019-08-09] MEDS: Albuterol 2.5 MG/3 ML VIAL.NEB. INHALATION (19:23)
--- NOTE | 2019-08-09 20:32 | ED.VISSUMM ---
- ER Visit Summary Date of Service: 08/09/19 Chief Complaint: Shortness of breath and wheezing History of Present Illness: The patient is a 39 M who presents with shortness of breath and wheezing that has been getting worse over the past 4 days. Patient states he has a history of asthma and this feels similar to prior asthma attacks. Patient states he has been using his aerosols and inhalers at home with no relief. Patient states his breathing improves somewhat with the cold air. Patient admits to a cough with some clear sputum. Patient also admits to some rhinorrhea. Patient denies any fevers or chills. Patient does admit to some pain in his chest with coughing. Physical Examination: Vital signs are stable except for mild tachycardia of 110 and a pulse ox of 89% on room air. Patient is afebrile. Patient is in no acute distress. Oral mucosa is pink and moist. Neck is supple. Trachea is midline. There is no JVD. Heart was regular and tachycardic. Lungs showed diffuse expiratory wheezing. There is good respiratory effort noted. Abdomen is soft. Bowel sounds are normal. There is no tenderness. Cranial nerves II through XII are intact. There are no focal motor or sensory deficits noted. Test Results: PA and lateral chest x-ray was obtained. There is no acute cardiopulmonary process. CBC and basic metabolic profile were within normal limits. Emergency Department Course and Treatment: Patient was given a DuoNeb aerosol here initially. Patient was given a dose of Solu-Medrol here. Patient had some mild wheezing on reevaluation. Patient was given a repeat dose of albuterol here. Patient's wheezing improved. Patient's pulse ox reading improved to 94% on room air. Patient felt better on reevaluation. Patient was given a prescription for prednisone. Patient was instructed to continue to use his inhalers and aerosols as previously prescribed. Patient was instructed to follow-up with his primary care physician in 5 to 7 days. Patient understood and was agreeable with the plan. All questions were answered. Disposition: Discharge home Impression: Acute exacerbation of asthma This note was generated with [employer] dictation software. It may contain incorrect words, spelling, and punctuation that were not noted in review of the chart prior to signing ED Disposition - Plan for ED Patient: Disposition: Home or Assisted Living Diagnosis: Asthma exacerbation Instructions: ASTHMA, Acute (Adult) Prescriptions: Prednisone [Deltasone] 60 mg PO DAILY #15 tab Prescription Printed Referrals: Care Physician,No Primary [Primary Care Provider] - Ishaan,Ramila, [NON-STAFF] - 5-7 Days
[2019-08-09 20:43] VITALS: BP 144/94; PULSE 98; PULSE 99; RESP 16; RESP 17; O2SAT 94; O2SAT 95
== END 2019-08-09 20:48 | disposition home or self-care (01) ==
PROVIDERS: Emergency Provider Emergency Medicine
DX: J45.901 Unspecified asthma with (acute) exacerbation (principal)
CPT/HCPCS: 71046; 80048; 85025; 94640; 96374; 99284; A4216

== ENCOUNTER 2020-02-07 19:10 | Emergency (ER) | payer OTHER, SELFPAY ==
[2020-02-07] VITALS (8 sets, daily range): BP systolic 130–154; BP diastolic 82–103; PULSE 95–109; RESP 16–22; TEMP 36.3; O2SAT 93–95; BMI 20.8
--- NOTE | 2020-02-07 19:43 | ED.DCSUM_ITS ---
History of Present Illness Chief Complaint: Shortness of Breath Informant: Patient Onset: Days Context: Gradual Onset Current Severity: Moderate Maximum Severity: Moderate Narrative: Patient presents with shortness of breath and lung tightness consistent with asthma exacerbation. He reports shortness of breath for approximately 1 week. He was seen at [facility] yesterday and given an albuterol inhaler. He reports no improvement. He denies fever or chills. They did test him for work Covid but states the test results would not be back until Sunday. - Past Medical History (1) Asthma Status: Chronic Past Medical History - Allergies and Home Meds Allergies/Adverse Reactions: Allergies iodine Allergy (Verified 02/07/20 19:15) Swelling Primary Care Physician: Care Physician,No Primary [Primary Care Provider] - Prior records reviewed: Yes Surgical History: no surgical history Smoking Status: Former smoker - Family History Maternal Family History: Reports: Asthma, Hypertension Paternal Family History: Reports: Diabetes Review of Systems General: Denies: Chills, Fever Eyes: Denies: Visual changes - bilaterally ENT: Denies: Bilateral ear pain Cardiovascular: Reports: Chest pain - From coughing Respiratory: Reports: Dyspnea, Cough. Denies: Sputum Gastrointestinal: Denies: Abdominal pain, Nausea, Vomiting, Diarrhea Musculoskeletal: Denies: Extremity Pain Skin: Denies: Rash Neurological: Denies: Headache Hematologic: Denies: Easy bruising, Easy bleeding Allergy: Denies: Uticaria Physical Exam Vital Signs/Narrative: Vital Signs Temp Pulse Resp BP Pulse Ox 02/07/20 19:11 97.4 F L 97 22 H 154/103 H 95 Inital Vital Signs reviewed: Yes General: Well nourished, Well developed Head: Normocephalic ENT: Moist mucous membranes Neck: Supple Cardiovascular: Regular rate, Regular rhythm Respiratory: No distress, - - Tight expiratory wheezes throughout with poor air movement. Abdomen: Soft, Nontender Extremities: Nontender Skin: Normal color Neurological: Alert, Oriented x3 Diagnostic/Tx/Re-eval Impressions Chest X-Ray 02/07/20 20:55 IMPRESSION: Stable appearance to obstructive lung disease without focal cardiopulmonary disease perceived. at 2125 Reported and signed by: Chuck Espinosa MD Electronically Signed: Chuck Espinosa MD at 21:24 EDT Tel , Service support , 02/07/20 20:55 Chest PA and Lateral [RAD] Stat - Medical Decision Making Patient was given p.o. prednisone along with a DuoNeb treatment and 2 additional albuterol treatments. On repeat examination he continued to have wheezing throughout. There was improvement in air movement. Two-view chest x-ray reveals no focal infiltrate. Patient was given 2 additional albuterol treatments. At this time he continues to have only mild wheezing but significantly improved air movement. O2 sat is 92 to 95% on room air. Patient was encouraged to use his spacer with his inhaler. I will give him 4 additional days of steroids. He is already scheduled for a CT scan on Sunday from his primary care physician. ED Disposition - Plan for ED Patient: Disposition: Home or Assisted Living Diagnosis: Asthma exacerbation Instructions: ED REACTIVE AIRWAY DISEASE Adult Prescriptions: Prednisone [Deltasone] 60 mg PO DAILY #12 tab Transmission Status: Pending to [facility] Referrals: Joleen Leroy [NON-STAFF] - 3-5 Days
[2020-02-07] MEDS: predniSONE 20 MG Tablet 60 MG PO (20:02)
[2020-02-07] MEDS: Ipratropium/Albuterol Sulfate 3 ML AMPUL.NEB INHALATION (20:07)
[2020-02-07] MEDS: Albuterol 2.5 MG/3 ML VIAL.NEB. INHALATION ×4 (20:08→22:08)
--- NOTE | 2020-02-07 20:55 | RAD_ITS ---
HISTORY: SOB AND CP X1 WEEK, HX ASTHMA EXAM: XR Chest 2 Views: COMPARISON: August 09, 2019 FINDINGS: # of images incl. paperwork: 2 Pulmonary hyperexpansion persists with flattening of the diaphragm Lungs are clear. Heart is not enlarged. No acute osseous pathology perceived. Pulmonary vascularity is distinct. No effusions. RAD/Chest PA and Lateral IMPRESSION: Stable appearance to obstructive lung disease without focal cardiopulmonary disease perceived. at 2125 Reported and signed by: Chuck Espinosa MD Electronically Signed: Chuck Espinosa MD at 21:24 EDT Tel , Service support ,
== END 2020-02-07 22:39 | disposition home or self-care (01) ==
PROVIDERS: Emergency Provider Emergency Medicine
DX: J45.901 Unspecified asthma with (acute) exacerbation (principal); Z87.891 Personal history of nicotine dependence; Z79.51 Long term (current) use of inhaled steroids
CPT/HCPCS: 71046; 94640; 99282

== ENCOUNTER 2021-04-19 22:58 | Emergency (ER) | payer OTHER, SELFPAY ==
[2021-04-19 22:59] VITALS: BP 126/95; PULSE 73; RESP 18; TEMP 36.4; O2SAT 98; BMI 22.9
--- NOTE | 2021-04-20 00:42 | EX.ED.UPPERE ---
HPI History of Present Illness Chief Complaint: Laceration Informant: patient Occured/Mechanism Comment: Right third finger laceration status post cut on metal can. Onset/Context/Timing Current Severity: Mild Maximum Severity: Mild Narrative Narrative: Patient presents secondary to right third finger laceration. 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 When he was trying to pry the lid off he suffered a laceration to his finger. He is right-hand dominant. He is unsure of his last tetanus update. [facility] Medical History Asthma Home Medications budesonide-formoterol [Symbicort] 10.2 g IH BID #1 hfa.aer.ad 08/26/16 [Rx Last Taken 07/12/19] albuterol sulfate [ProAir HFA] 1 - 2 puff INHALATION Q4H PRN PRN #1 inhaler 11/07/18 [Rx Last Taken 07/12/19] albuterol sulfate 2.5 mg INHALATION Q4H PRN #25 vial 12/07/18 [Rx Last Taken 07/12/19] budesonide [Pulmicort Flexhaler] 1 puff INHALATION BID #1 inhaler 12/07/18 [Rx Last Taken 07/12/19] ipratropium bromide 0.5 mg INHALATION TID #1 box 12/07/18 [Rx Last Taken 07/12/19] albuterol sulfate 2.5 mg INHALATION Q4H PRN #25 vial 07/12/19 [Rx Last Taken Unknown] prednisone 60 mg PO DAILY #12 tab 02/07/20 [Rx Last Taken Unknown] Allergy/AdvReac Type Severity Reaction Status Date / Time iodine Allergy Swelling Verified 04/19/21 22:59 Social History Smoking Status: Light Smoker (<10/day) ROS ROS ED Constitutional Constitutional ED: Denies chills or fever(s) Eyes Eyes: Denies change in vision ENT ENT ED: Denies sore throat Cardiovascular Cardiovascular: Denies chest pain Respiratory/Chest Respiratory/Chest: Denies cough or dyspnea Gastrointestinal Gastrointestinal: Denies abdominal pain, diarrhea, nausea or vomiting Genitourinary Genitourinary ED: Denies dysuria Musculoskeletal Musculoskeletal: Reports other Details: Right third finger pain ; Denies back pain Integumentary Denies rash Neurologic Neurologic: Denies headache(s), paresthesias or weakness Allergic/Immunologic Allergic/Immunologic ED: Denies urticaria EXAM Physical Exam Const Vital Signs: 04/19/21 22:59 Temperature 97.6 F L Temperature Source Temporal Pulse Rate 73 Respiratory Rate 18 Blood Pressure 126/95 H Blood Pressure Mean 105 Pulse Ox 98 Oxygen Delivery Method Room Air Positive well nourished and well developed General Appearance ED: well developed HEENT normocephalic Eyes PERRL and EOMs intact bilaterally Neck supple Chest Wall inspection of chest normal and palpation of chest normal Resp normal respiratory effort and clear to auscultation bilaterally Cardio regular rate and regular rhythm GI non-tender Palpation: soft Extremity Extremity Narrative: 2 cm laceration of the right third finger crossing the DIP joint. No active bleeding. Full range of motion with good sensation and cap refill distally. Neuro oriented x3 and no sensory deficits noted Sensorium / Orientation: alert Motor Exam: strength 5/5 throughout Skin Lesions: no lesions Rashes: no rashes MDM MDM MDM Narrative Medical decision making narrative: Tetanus update is provided. Right third finger laceration is repaired. Please see procedure note. Treatment and Re-Evaluation Comments:: Dressing is applied. Patient advised to keep wound clean and covered. He is to follow-up in 7 days for suture removal. Procedures Lacerations Right third finger: Length: 0.79 in Depth: Sub Q Shape: Linear Prep: Sandra Laceration repair: Digital block and Lidocaine Number of Sutures/Blue: 4 Suture Information: Ethilon, Simple and 5-0 Comment: Digital block performed with 1 cc of 2% lidocaine. Wound cleansed. Suture repaired with 4 simple interrupted sutures of 5-0 nylon. Dressing applied and wound care discussed. Discharge Plan Triage Chief Complaint: Laceration ED Provider: Deya Guerrero Dx/Rx/DC Orders Clinical Impression: Finger laceration Instructions: ED Laceration, Hand: All Closures Prescriptions: No Action budesonide-formoterol [Symbicort] 6 GM HFA aerosol inhaler 10.2 g IH BID Qty: 1 RF: 0 albuterol sulfate [ProAir HFA] 1 PUFF inhaler 1 - 2 puff inhalation Q4H PRN PRN (Reason: dyspnea, wheezing) Qty: 1 RF: 0 albuterol sulfate 2.5 MG/3 ML Vial.Neb. 2.5 mg inhalation Q4H PRN Qty: 25 RF: 0 ipratropium bromide 0.5 MG/2.5 ML Solution 0.5 mg inhalation TID Qty: 1 RF: 0 budesonide [Pulmicort Flexhaler] 1 PUFF inhaler 1 puff inhalation BID Qty: 1 RF: 0 albuterol sulfate 2.5 MG/3 ML solution for nebulization 2.5 mg inhalation Q4H PRN Qty: 25 RF: 0 prednisone 20 MG tablet 60 mg PO DAILY Qty: 12 RF: 0 Primary Care Provider: Care Physician,No Primary Referrals: Joleen Leroy [NON-STAFF] - 7 Days for suture removal Care Physician,No Primary [Primary Care Provider] - Disposition Disposition: Home, Self Care Discharge Date/Time: 04/20/21 01:22
--- NOTE | 2021-04-20 01:05 | EX.ED.UPPERE ---
HPI History of Present Illness Chief Complaint: Laceration [facility] Medical History Asthma Home Medications budesonide-formoterol [Symbicort] 10.2 g IH BID #1 hfa.aer.ad 08/26/16 [Rx Last Taken 07/12/19] albuterol sulfate [ProAir HFA] 1 - 2 puff INHALATION Q4H PRN PRN #1 inhaler 11/07/18 [Rx Last Taken 07/12/19] albuterol sulfate 2.5 mg INHALATION Q4H PRN #25 vial 12/07/18 [Rx Last Taken 07/12/19] budesonide [Pulmicort Flexhaler] 1 puff INHALATION BID #1 inhaler 12/07/18 [Rx Last Taken 07/12/19] ipratropium bromide 0.5 mg INHALATION TID #1 box 12/07/18 [Rx Last Taken 07/12/19] albuterol sulfate 2.5 mg INHALATION Q4H PRN #25 vial 07/12/19 [Rx Last Taken Unknown] prednisone 60 mg PO DAILY #12 tab 02/07/20 [Rx Last Taken Unknown] Allergy/AdvReac Type Severity Reaction Status Date / Time iodine Allergy Swelling Verified 04/19/21 22:59 Social History Smoking Status: Light Smoker (<10/day) EXAM Physical Exam Const Vital Signs: 04/19/21 22:59 Temperature 97.6 F L Temperature Source Temporal Pulse Rate 73 Respiratory Rate 18 Blood Pressure 126/95 H Blood Pressure Mean 105 Pulse Ox 98 Oxygen Delivery Method Room Air Discharge Plan Triage Chief Complaint: Laceration ED Provider: Deya Guerrero Dx/Rx/DC Orders Clinical Impression: Finger laceration Instructions: ED Laceration, Hand: All Closures Prescriptions: No Action budesonide-formoterol [Symbicort] 6 GM HFA aerosol inhaler 10.2 g IH BID Qty: 1 RF: 0 albuterol sulfate [ProAir HFA] 1 PUFF inhaler 1 - 2 puff inhalation Q4H PRN PRN (Reason: dyspnea, wheezing) Qty: 1 RF: 0 albuterol sulfate 2.5 MG/3 ML Vial.Neb. 2.5 mg inhalation Q4H PRN Qty: 25 RF: 0 ipratropium bromide 0.5 MG/2.5 ML Solution 0.5 mg inhalation TID Qty: 1 RF: 0 budesonide [Pulmicort Flexhaler] 1 PUFF inhaler 1 puff inhalation BID Qty: 1 RF: 0 albuterol sulfate 2.5 MG/3 ML solution for nebulization 2.5 mg inhalation Q4H PRN Qty: 25 RF: 0 prednisone 20 MG tablet 60 mg PO DAILY Qty: 12 RF: 0 Primary Care Provider: Care Physician,No Primary Referrals: Joleen Leroy [NON-STAFF] - 7 Days for suture removal Care Physician,No Primary [Primary Care Provider] - Disposition Disposition: Home, Self Care
[2021-04-20] MEDS: Diphth,Pertuss(Acell),Tet Vac 0.5 ML Vial IM (01:18)
== END 2021-04-20 01:22 | disposition home or self-care (01) ==
PROVIDERS: Emergency Provider Emergency Medicine
DX: S61.212A Laceration without foreign body of right middle finger without damage to nail, initial encounter (principal); J45.909 Unspecified asthma, uncomplicated; F17.200 Nicotine dependence, unspecified, uncomplicated; Z23 Encounter for immunization; Z79.51 Long term (current) use of inhaled steroids; W26.8XXA Contact with other sharp object(s), not elsewhere classified, initial encounter; Y93.G1 Activity, food preparation and clean up; Y92.000 Kitchen of unspecified non-institutional (private) residence as the place of occurrence of the external cause; Y99.8 Other external cause status
CPT/HCPCS: 12001; 90471; 90715; 99283

== ENCOUNTER 2022-12-10 20:24 | Emergency (ER) | payer OTHER, SELFPAY ==
[2022-12-10 20:25] VITALS: BP 154/117; PULSE 99; RESP 20; TEMP 37; O2SAT 93; BMI 20.8
--- NOTE | 2022-12-10 20:47 | EDS_ITS ---
HPI History of Present Illness Chief Complaint: General Illness Informant: patient Onset/Context/Timing Onset: Weeks (1) Context: Gradual Onset Timing: Continuous Quality: wheezing, chest tightness Current Severity: Moderate Maximum Severity: Moderate Worsened by: exertion, coughing Relieved by: albuterol in beginning but not now; rest Associated Symptoms Associated Symptoms: prod cough Narrative Narrative: 42-year-old male has been having cold symptoms along with progressively worsening asthma symptoms over the past week. No known sick contacts. No travel out of the area. He is vaccinated against COVID and had COVID in the past, and has been around no one with that that he knows of. He denies any leg swelling, vomiting, diarrhea. No sore throat or earache no fevers or chills. [facility] Medical History Asthma Home Medications albuterol sulfate 2.5 mg/3 mL (0.083 %) solution for nebulization 2.5 mg (3 mL) inhalation Q4H PRN #25 vials 12/07/18 [Rx Last Taken 07/12/19] prednisone 20 mg tablet 40 mg PO DAILY 5 days #10 TABLETS 12/10/22 [Rx Last Taken Unknown] Allergy/AdvReac Type Severity Reaction Status Date / Time iodine Allergy Swelling Verified 12/10/22 20:28 Social History Smoking Status: Former smoker ROS ROS ED Constitutional Constitutional ED: Denies chills or fever(s) Eyes Eyes: Denies change in vision or diplopia ENT ENT ED: Denies rhinorrhea or sore throat Cardiovascular Cardiovascular: Denies chest pain or palpitations Respiratory/Chest Respiratory/Chest: Reports as per HPI, chest tightness, cough, dyspnea and wh eezing Gastrointestinal Gastrointestinal: Denies abdominal pain, diarrhea, nausea or vomiting Genitourinary Genitourinary ED: Denies dysuria or hematuria Musculoskeletal Musculoskeletal: Denies back pain or neck pain Integumentary Denies abscess or rash Neurologic Neurologic: Denies headache(s), paresthesias or weakness Psychiatric Psychiatric: Denies anxiety or suicidal thoughts EXAM Physical Exam Const Vital Signs: 12/10/22 20:25 12/10/22 20:36 12/10/22 21:03 Temperature 98.6 F Temperature Source Temporal Pulse Rate 99 102 H Respiratory Rate 20 H 18 Respiratory Effort Normal Non-Labored Respiratory Pattern Normal Blood Pressure 154/117 H Blood Pressure Mean 129 Pulse Ox 93 Oxygen Delivery Method Room Air Positive well nourished and well developed General Appearance ED: well developed and NAD HEENT Reports moist mucous membranes normocephalic and atraumatic Eyes PERRL and EOMs intact bilaterally Neck full ROM and supple Resp normal respiratory effort Resp Narrative: Diffuse expiratory wheezes throughout all [place] bilaterally symmetrically, trachea midline, no respiratory distress. Cardio regular rate, regular rhythm and no murmurs GI non-tender and non-distended Auscultation: normoactive bowel sounds Palpation: soft Back/Spine no CVA tenderness General Back: other FROM Extremity normal to inspection General Extremety ED: Negative for edema, pulses abnormal or tenderness General Extremity: Negative for edema or pulses abnormal Neuro oriented x3, CN's II-XII intact bilaterally and no sensory deficits noted Sensorium / Orientation: awake and alert Motor Exam: strength 5/5 throughout Skin no rashes or lesions noted and no wounds MDM MDM MDM Narrative Medical decision making narrative: Chest x-ray 2 views of my interpretation negative for pneumonia, radiology in agreement. We did a COVID/influenza swab, that is negative as well. In the meantime he was given a duo nebulizer treatment and prednisone 40 mg orally, he did feel better but still somewhat tight and is okay getting a couple more nebulizer treatments prior to discharge. He is oxygenating well. Will prescribe him prednisone, suspect viral etiology no antibiotics indicated he is in agreement with that, we discussed reasons to return he has albuterol at home, he is comfortable with that plan. Radiography Diagnostic Testing: Clinical Impression(s) from Imaging Studies Chest X-Ray 12/10/22 20:50 IMPRESSION: 1. No evidence of acute cardiopulmonary process. Sequelae of COPD and hyperexpansion. Electronically Signed: Neto Horowitz MD at 21:16 EDT , Discharge Plan Triage Chief Complaint: General Illness ED Provider: Shyam Stern Dx/Rx/DC Orders Clinical Impression: Acute asthma exacerbation, Viral URI with cough Instructions: Asthma Prescriptions: New prednisone 20 mg tablet 40 mg PO DAILY 5 Days Qty: 10 0RF No Action albuterol sulfate 2.5 MG/3 ML solution for nebulization 2.5 mg inhalation Q4H PRN Qty: 25 0RF Rx Instructions: Use q4 hours and PRN for wheezing Primary Care Provider: Care Physician,No Primary Referrals: Care Physician,No Primary [Primary Care Provider] - Doctor,Your [Non-Staff] - 3-5 Days if not improving Disposition Disposition: Home, Self Care
--- NOTE | 2022-12-10 20:50 | RAD_ITS ---
INDICATION: cough, sob EXAMINATION/TECHNIQUE: X-RAY - XR Chest 2 Views COMPARISON: 02/07/2020 FINDINGS: LIFE-SUPPORT AND LINES: 1. None HEART AND VESSELS: The cardiac silhouette, pulmonary vasculature have normal appearance. No evidence of congestive failure. LUNGS AND PLEURAL SPACES: Lungs are hyperexpanded however no infiltrate consolidation or effusion noted. No pulmonary mass is noted. MEDIASTINUM AND HILAR REGIONS: No masses adenopathy noted. No areas of calcification. Visualized upper airway is normal in position. BONY ELEMENTS: No acute bony changes noted. RAD/Chest PA and Lateral IMPRESSION: 1. No evidence of acute cardiopulmonary process. Sequelae of COPD and hyperexpansion. Electronically Signed: Neto Horowitz MD at 21:16 EDT ,
[2022-12-10] MEDS: Ipratropium/Albuterol Sulfate 3 ML AMPUL.NEB INHALATION (21:02)
[2022-12-10 21:03] VITALS: PULSE 102; RESP 18
[2022-12-10] MEDS: predniSONE 20 MG Tablet 40 MG PO (21:04)
[2022-12-10] MEDS: Albuterol 2.5 MG/3 ML VIAL.NEB. INHALATION ×2 (21:53)
== END 2022-12-10 22:21 | disposition home or self-care (01) ==
PROVIDERS: Emergency Provider Emergency Medicine; Referring Provider Emergency Medicine; Visit Provider Emergency Medicine
DX: J45.901 Unspecified asthma with (acute) exacerbation (principal); Z87.891 Personal history of nicotine dependence; Z79.52 Long term (current) use of systemic steroids
CPT/HCPCS: 71046; 87428; 94640; 99283

== ENCOUNTER 2023-02-16 03:00 | Emergency (ER) | payer OTHER, SELFPAY ==
[2023-02-16 03:01] VITALS: O2SAT 97
[2023-02-16 03:02] VITALS: BP 167/98; PULSE 108; RESP 22; TEMP 36.3; O2SAT 87; BMI 22.9
[2023-02-16 03:05] VITALS: O2SAT 97
--- NOTE | 2023-02-16 03:09 | RAD_ITS ---
INDICATION: dyspnea EXAMINATION/TECHNIQUE: X-RAY - XR Chest 1 View COMPARISON: CR ChestApr 2022 FINDINGS: LINES/DEVICES: None. LUNGS: No consolidation, edema or effusion. No pneumothorax. MEDIASTINUM AND CARDIOVASCULAR STRUCTURES: Cardiac silhouette not enlarged. Central airways and mediastinal contour are unremarkable. BONES AND SOFT TISSUES: Unremarkable. RAD/Chest 1 View (Portable) IMPRESSION: No radiographic evidence of acute cardiopulmonary disease. Electronically Signed: Olivier Cordero MD at 4:29 EDT ,
--- NOTE | 2023-02-16 03:09 | EDS_ITS ---
HPI History of Present Illness Chief Complaint: Shortness of Breath Narrative Narrative: 42-year-old male presenting with shortness of breath. He is a former smoker with a history of asthma. He states has been having shortness of breath for the last couple of days. Denies fever, chills, body aches. States he is more short of breath tonight. He has albuterol nebulizers at home which are not working. He is not on any steroids currently. He states he was trying to push through it but tonight he just could not catch his breath. [facility] Medical History Asthma Home Medications albuterol sulfate 2.5 mg/3 mL (0.083 %) solution for nebulization 2.5 mg (3 mL) inhalation Q4H PRN #25 vials 12/07/18 [Rx Last Taken 07/12/19] prednisone 20 mg tablet 40 mg (2 x 20 mg) PO DAILY 5 days #10 TABLETS 12/10/22 [Rx Last Taken Unknown] albuterol sulfate 2.5 mg/0.5 mL solution for nebulization 2.5 mg (0.5 mL) inhalation Q6H PRN shortness of breath or wheezing #30 ea 02/16/23 [Rx Last Taken Unknown] prednisone 50 mg tablet 50 mg PO DAILY 5 days #5 tabs 02/16/23 [Rx Last Taken Unknown] Allergy/AdvReac Type Severity Reaction Status Date / Time iodine Allergy Swelling Verified 02/16/23 03:04 Social History Smoking Status: Former smoker ROS ROS ED Constitutional Constitutional ED: Denies chills, fever(s) or sweats Eyes Eyes: Denies blurry vision or change in vision ENT ENT ED: Denies ear pain or sore throat Cardiovascular Cardiovascular: Denies chest pain, palpitations or racing heartbeat Respiratory/Chest Respiratory/Chest: Reports dyspnea and dyspnea on exertion; Denies sputum Gastrointestinal Gastrointestinal: Denies abdominal pain, constipation, diarrhea, nausea or vomiting Genitourinary Genitourinary ED: Denies dysuria, hematuria or urinary frequency Musculoskeletal Musculoskeletal: Denies arthralgias, myalgias or neck pain Integumentary Denies abscess, Abrasions or rash Neurologic Neurologic: Denies headache(s), paresthesias or weakness Psychiatric Psychiatric: Denies anxiety, depression, suicidal ideation or suicidal thoughts Endocrine Endocrinology: Denies polydipsia or polyuria EXAM Physical Exam Const Vital Signs: 02/16/23 03:02 02/16/23 03:01 02/16/23 03:05 Temperature 97.4 F L Temperature Source Temporal Pulse Rate 108 H Respiratory Rate 22 H Respiratory Effort Short of Breath Respiratory Pattern Tachypnea Blood Pressure 167/98 H Blood Pressure Mean 121 Pulse Ox 87 97 Oxygen Delivery Method Room Air Nasal Cannula Nasal Cannula Oxygen Flow Rate (L/min) 2 2 02/16/23 03:19 02/16/23 04:05 Temperature Temperature Source Pulse Rate 100 100 Respiratory Rate 26 H 22 H Respiratory Effort Respiratory Pattern Tachypnea Tachypnea Blood Pressure Blood Pressure Mean Pulse Ox Oxygen Delivery Method Oxygen Flow Rate (L/min) Positive well nourished General Appearance ED: NAD; Negative for pallor HEENT Reports moist mucous membranes Eyes PERRL Resp Resp Narrative: Tachypneic Auscultation: wheezes expiratory wheezes and throughout Cardio regular rhythm Rate: tachycardic Neuro oriented x3 and CN's II-XII intact bilaterally Sensorium / Orientation: alert Motor Exam: strength 5/5 throughout Psych mental status grossly normal Skin no wounds General Skin Exam: Negative for jaundice or pallor MDM MDM MDM Narrative Medical decision making narrative: Patient wheezing on exam. He is given breathing treatments and oral prednisone. Chest x-ray was obtained and on my interpretation this shows no acute process. Radiologist interprets this and agrees agrees. On reevaluation after his breathing treatment he still very wheezy he is opened up a little bit. He still feels like he having trouble catching his breath. Repeat breathing treatments were ordered. IV line was established and basic lab work was obtained. CBC and BMP are unremarkable. Patient given a liter of IV fluids. Will reevaluate after second treatments. On reevaluation the patient is feeling improved. He states that he wants to go home. I will start him on prednisone and refill his albuterol nebulizers. Return precautions were discussed. Impression: 1. Acute asthma exacerbation Lab Data Attestation: I reviewed the patient's lab results. Labs: Laboratory Results - last 24 hr 02/16/23 03:40 WBC 10.2 RBC 4.85 Hgb 13.3 Hct 40.1 MCV 82.7 MCH 27.4 MCHC 33.2 RDW Std Deviation 44.8 H RDW Coeff of Jennifer 14.9 H Plt Count 263 MPV 8.5 Immature Gran % (Auto) 0.200 Neut % (Auto) 38.2 L Lymph % (Auto) 46.0 H Sampson % (Auto) 11.2 H Eos % (Auto) 4.0 Baso % (Auto) 0.4 Absolute Neuts (auto) 3.9 Absolute Lymphs (auto) 4.69 H Nucleated RBC % 0 Sodium 141 Potassium 3.8 Chloride 108 H Carbon Dioxide 26.0 Anion Gap 7 BUN 13 Creatinine 1.14 Estim Creat Clear Calc 85.80 Est GFR (MDRD) Af Amer 90 Est GFR (MDRD) Non-Af 74 BUN/Creatinine Ratio 11.4 Glucose 97 Calcium 8.4 L Radiography Diagnostic Testing: Clinical Impression(s) from Imaging Studies Chest X-Ray 02/16/23 03:09 IMPRESSION: No radiographic evidence of acute cardiopulmonary disease. Electronically Signed: Olivier Cordero MD at 4:29 EDT , Discharge Plan Triage Chief Complaint: Shortness of Breath ED Provider: Chay Mclaughlin Dx/Rx/DC Orders Instructions: ED Asthma, Acute (Adult) Prescriptions: New prednisone 50 mg tablet 50 mg PO DAILY 5 Days Qty: 5 0RF albuterol sulfate 2.5 mg/0.5 mL solution for nebulization 2.5 mg inhalation Q6H PRN (Reason: shortness of breath or wheezing) Qty: 30 0RF Rx Instructions: for up to 3 doses No Action albuterol sulfate 2.5 MG/3 ML solution for nebulization 2.5 mg inhalation Q4H PRN Qty: 25 0RF Rx Instructions: Use q4 hours and PRN for wheezing prednisone 20 mg tablet 40 mg PO DAILY 5 Days Qty: 10 0RF Hold Instructions: D/C Primary Care Provider: Care Physician,No Primary Referrals: Jozef Maharaj DO [Med Staff - Active Staff] - As soon as possible Care Physician,No Primary [Primary Care Provider] - Disposition Disposition: Home, Self Care
[2023-02-16] MEDS: predniSONE 20 MG Tablet 60 MG PO (03:12)
[2023-02-16] MEDS: Albuterol 2.5 MG/3 ML VIAL.NEB. INHALATION ×4 (03:16→04:19)
[2023-02-16] MEDS: Ipratropium/Albuterol Sulfate 3 ML AMPUL.NEB INHALATION (03:16)
[2023-02-16 03:19] VITALS: PULSE 100; RESP 26
[2023-02-16 03:45] LABS: Absolute Lymphocyte Count 4.69 X10^3/uL (0.83-4.51); Absolute Neutrophil Count 3.9 X10^3/uL (2.0-7.7); Basophil# 0.04 X10^3/uL; Basophil% 0.4 % (0-1); Eosinophil# 0.41 X10^3/uL; Hematocrit 40.1 % (40-54); Hemoglobin 13.3 g/dL (13.0-16.5); Lymphocyte # 4.69 X10^3/ul (0.83-4.51); Mean Corp Hgb Conc 33.2 g/dL (32-36); Mean Corpuscular Hgb 27.4 pg (27.0-32.0); Mean Corpuscular Volume 82.7 fL (80-94); Mean Platelet Vol. 8.5 fl (6.2-12.0); Monocyte# 1.14 X10^3/uL; Monocyte% 11.2 % (0-10); NRBC Flagged by Analyzer 0 % (0-5); Neutrophil % 38.2 % (47-70); Platelet Count 263 K/mm3 (150-450); RBC Distribution Width CV 14.9 % (11.6-14.6); RBC Distribution Width SD 44.8 fl (35.1-43.9); Red Blood Count 4.85 M/mm3 (4.6-6.2); White Blood Count 10.2 K/mm3 (4.4-11.0)
[2023-02-16 03:59] LABS: Anion Gap 7 (5-15); BUN 13 mg/dL (7-18); BUN/Creat Ratio 11.4 RATIO (10-20); Calcium,Total 8.4 mg/dL (8.5-10.1); Chloride 108 mmol/L (98-107); Creatinine, Serum 1.14 mg/dL (0.70-1.30); EST Glomerular Filtration Rate 74 mL/min (>60); Est Glom Filt Rate - Afr Amer 90 mL/min (>60); Glucose 97 mg/dL (74-106); Potassium 3.8 mmol/L (3.5-5.1); Sodium Level 141 mmol/L (136-145)
[2023-02-16 04:05] VITALS: PULSE 100; RESP 22
[2023-02-16 04:52] VITALS: BP 129/95; PULSE 100; RESP 20; O2SAT 92
== END 2023-02-16 04:54 | disposition home or self-care (01) ==
PROVIDERS: Emergency Provider Student in an Organized Health Care Education/Training Program; Visit Provider Student in an Organized Health Care Education/Training Program
DX: J45.901 Unspecified asthma with (acute) exacerbation (principal); Z87.891 Personal history of nicotine dependence
CPT/HCPCS: 71045; 80048; 85025; 94640; 99283; A4216

== ENCOUNTER → 2024-10-23 | Outpatient (CLI) | payer OTHER, SELFPAY ==
[2024-10-23 12:41] LABS: Absolute Lymphocyte Count 3.19 X10^3/uL (0.83-4.51); Absolute Neutrophil Count 2.9 X10^3/uL (2.0-7.7); Basophil# 0.04 X10^3/uL; Basophil% 0.6 % (0-1); Eosinophil# 0.06 X10^3/uL; Eosinophils% 0.9 % (0-5); Hematocrit 43.2 % (40-54); Hemoglobin 14.6 g/dL (13.0-16.5); Lymphocyte # 3.19 X10^3/ul (0.83-4.51); Lymphocyte % 46.6 % (19-41); Mean Corp Hgb Conc 33.8 g/dL (32-36); Mean Corpuscular Volume 82.8 fL (80-94); Mean Platelet Vol. 9.3 fl (6.2-12.0); Monocyte# 0.61 X10^3/uL; Monocyte% 8.9 % (0-10); NRBC Flagged by Analyzer 0 % (0-5); Neutrophil # 2.92 X10^3/uL (2.7-7.7); Neutrophil % 42.7 % (47-70); Platelet Count 309 K/mm3 (150-450); RBC Distribution Width CV 14.6 % (11.6-14.6); RBC Distribution Width SD 43.8 fl (35.1-43.9); Red Blood Count 5.22 M/mm3 (4.6-6.2); White Blood Count 6.8 K/mm3 (4.4-11.0)
[2024-10-23 13:15] LABS: ALB/GLOB Ratio 1.4 RATIO (0.9-2.4); AST(SGOT) 30 U/L (<=37); Alanine Aminotransfer ALT/SGPT 28 U/L (<=46); Albumin, Serum 4.4 g/dL (3.5-5.0); Alkaline Phosphatase 84 U/L (40-129); Anion Gap 12 (5-15); BUN 14 mg/dL (4-19); Calcium,Total 9.2 mg/dL (7.6-11.0); Chloride 102 mmol/L (98-108); Cholesterol 172 mg/dL (<=200); Creatinine, Serum 0.94 mg/dL (0.70-1.20); EST Glomerular Filtration Rate 102 (>60); Globulin 3.2 g/dL (2.2-4.2); Glucose 106 mg/dL (70-99); High Density Lipoprotein 70 mg/dL; Low Density Lipoprotein Calc. 86 mg/dL; Potassium 4.7 mmol/L (3.3-5.1); Protein, Total 7.6 g/dL (5.9-8.4); Sodium Level 138 mmol/L (133-145); Thyroid Stim Hormone (TSH) 0.587 uIU/mL (0.300-4.200); Total Bilirubin 0.29 mg/dL (0.00-1.30); Triglycerides 77 mg/dL; Very Low Density Lipoprotein 15 mg/dL (5-40); cholesterol:hdl ratio screen 2.44
[2024-10-23 18:31] LABS: Hemoglobin A1c 5.8 % (<=5.6)
== END | disposition home or self-care (01) ==
LOC: VSLAB 09:18
DX: Z13.6 Encounter for screening for cardiovascular disorders (principal); Z13.1 Encounter for screening for diabetes mellitus; Z13.220 Encounter for screening for lipoid disorders
CPT/HCPCS: 36415; 80053; 80061; 83036; 84443; 85025